=== PATIENT | female | born 1965 | race Two or more races ===

== ENCOUNTER 2022-07-08 10:22 | Emergency (ER) | payer OTHER ==
[~2022-07-08] VITALS: Ht 157.5 cm; Wt 82.6 kg
[2022-07-08] MEDS ORDERED: SIMVASTATIN5 MG (11:24)
[2022-07-08] MEDS ORDERED: COZAAR25 MG (11:24)
[2022-07-08] MEDS ORDERED: GLUMETZA500 MG (11:26)
[2022-07-08] MEDS ORDERED: NOVOLIN 70100 UNIT/1 (11:26)
== END 2022-07-08 14:41 | disposition home or self-care (01) ==
LOC: ER 10:22
DX: K29.70 Gastritis, unspecified, without bleeding (principal); I10 Essential (primary) hypertension; E11.9 Type 2 diabetes mellitus without complications; Z79.84 Long term (current) use of oral hypoglycemic drugs; Z91.013 Allergy to seafood